=== PATIENT | female | born 1990 | race Caucasian/White ===

== ENCOUNTER 2020-10-24 19:53 | Inpatient (IN) | payer BC ==
[2020-10-24] MEDS ORDERED: Calcium Carbonate 500 MG Tab.Chew PO PRN (21:08)
[2020-10-24] MEDS ORDERED: Ondansetron 4 MG/2 ML SDV IVPUSH PRN (21:08)
[2020-10-24] MEDS ORDERED: Nalbuphine 10 MG/1 ML Vial IVPUSH PRN (21:08)
[2020-10-24] MEDS ORDERED: Sodium Chloride 0.9% 10 ML Syringe FLUSH PRN (21:08)
[2020-10-24] MEDS ORDERED: Oxytocin/Lactated Ringers 10 UNIT/1,000 ML BAG IV SCH ×2 (21:15)
[2020-10-24] MEDS: Lactated Ringers 1,000 ML IV SCH ×2 (22:58→23:57)
[2020-10-24] MEDS ORDERED: diphenhydrAMINE 50 MG/ML SDV IVPUSH PRN (23:50)
[2020-10-24] MEDS ORDERED: fentaNYL 100 MCG/2 ML SDV EPIDUR PRN (23:50)
[2020-10-24] MEDS ORDERED: ePHEDrine 50 MG/ML SDV IVPUSH PRN (23:50)
[2020-10-25] MEDS ORDERED: Bupivacaine 0.25% 10 ML SDV ONE
[2020-10-25] MEDS: Bupivacaine/fentaNYL/NS 100 ML Bag EPIDUR PRN ×2 (00:02→09:45)
--- NOTE | 2020-10-25 00:22 | PCM.PREANE ---
Preanesthetic Assessment - Procedure Proposed Procedure: delroy - Anesthesia/Transfusion/Family Hx Anesthesia History: Prior Anesthesia Without Reaction Family History of Anesthesia Reaction: No Transfusion History: No Prior Transfusion(s) Type of Transfusion Reactions: Reports: Unknown - Review of Systems General: No Symptoms Pulmonary: No Symptoms Cardiovascular: No Symptoms Gastrointestinal: Abdominal Pain (contractions) Neurological: No Symptoms Other: Reports: None - Physical Assessment Vital Signs: Last Vital Signs Temp 98.6 F 10/24/20 20:19 Pulse 120 H 10/24/20 20:19 Resp 18 10/24/20 20:19 BP 136/71 10/24/20 20:19 Pulse Ox 98 10/24/20 20:19 Height: 5 ft 5 in Weight: 85.275 kg ASA Class: 2 Mental Status: Alert & Oriented x3 Airway Class: Mallampati = 1 Dentition: Reports: Normal Dentition Thyro-Mental Finger Breadths: 3 Mouth Opening Finger Breadths: 3 ROM/Head Extension: Full Lungs: Clear to Auscultation, Normal Respiratory Effort Cardiovascular: Regular Rate, Regular Rhythm - Lab Values: Laboratory Last Values WBC 11.72 K/mm3 (3.98-10.04) H 10/24/20 21:20 RBC 3.79 M/mm3 (3.98-5.22) L 10/24/20 21:20 Hgb 10.6 gm/dl (11.2-15.7) L 10/24/20 21:20 Hct 33.0 % (34.1-44.9) L 10/24/20 21:20 MCV 87.1 fl (79.4-94.8) 10/24/20 21:20 MCH 28.0 pg (25.6-32.2) 10/24/20 21:20 MCHC 32.1 g/dl (32.2-35.5) L 10/24/20 21:20 RDW Std Deviation 40.8 fL (36.4-46.3) 10/24/20 21:20 Plt Count 225 K/mm3 (182-369) 10/24/20 21:20 MPV 10.9 fl (9.4-12.3) 10/24/20 21:20 Neut % (Auto) 76.3 % (34.0-71.1) H 10/24/20 21:20 Lymph % (Auto) 13.5 % (19.3-51.7) L 10/24/20 21:20 [place] % (Auto) 6.9 % (4.7-12.5) 10/24/20 21:20 Eos % (Auto) 2.6 (0.7-5.8) 10/24/20 21:20 Baso % (Auto) 0.1 % (0.1-1.2) 10/24/20 21:20 Neut # (Auto) 8.94 K/mm3 (1.56-6.13) H 10/24/20 21:20 Lymph # (Auto) 1.58 K/mm3 (1.18-3.74) 10/24/20 21:20 [place] # (Auto) 0.81 K/mm3 (0.24-0.36) H 10/24/20 21:20 Eos # (Auto) 0.31 K/mm3 (0.04-0.36) 10/24/20 21:20 Baso # (Auto) 0.01 K/mm3 (0.01-0.08) 10/24/20 21:20 Membrane Rupture Positive H 10/24/20 20:20 RPR Non-reactive (NONREACTIVE) 10/24/20 21:20 SARS-CoV-2 RNA (ASHLEY) Negative (NEGATIVE) 10/24/20 21:30 Blood Type O POSITIVE 10/24/20 21:20 Gel Antibody Screen Negative 10/24/20 21:20 - Allergies Allergies/Adverse Reactions: Allergies Allergy/AdvReac Type Severity Reaction Status Date / Time No Known Allergies Allergy Verified 10/24/20 22:09 - Blood Blood Available: No - Acknowledgements Anesthesia Type Planned: Epidural Pt an Appropriate Candidate for the Planned Anesthesia: Yes Alternatives and Risks of Anesthesia Discussed w Pt/Guardian: Yes Pt/Guardian Understands and Agrees with Anesthesia Plan: Yes PreAnesthesia Questionnaire - Past Health History Medical/Surgical History: Denies Medical/Surgical History Cardiovascular History: Reports: None Respiratory History: Reports: None Gastrointestinal History: Reports: None PECAN HULLER History: Reports: , Other (See Below) : 2 (38 weeks) Para: 1 Other OB/BYN History: Dysmenorrhea, menometrorragia, HPV in 2012 Musculoskeletal History: Reports: None Oncologic (Cancer) History: Reports: None - Infectious Disease History Infectious Disease History: Reports: Chicken Pox, Human Papilloma Virus (HPV) - Past Surgical History HEENT Surgical History: Reports: Myringotomy w Tube(s), Oral Surgery, Other (See Below) Other HEENT Surgeries/Procedures: wisdom teeth removed - SUBSTANCE USE Tobacco Use Status *Q: Never Tobacco User Tobacco Use Within Last Twelve Months: No Second Hand Smoke Exposure: No Recreational Drug Use History: No - HOME MEDS Home Medications: Home Meds Pnv No.95/Ferrous Fum/Folic AC [ Tablet] 1 tab PO DAILY 03/29/19 [History] - CURRENT (IN HOUSE) MEDS Current Meds: Current Medications Calcium Carbonate/Glycine (Tums) 1,000 mg PO Q2H PRN PRN Reason: Indigestion Diphenhydramine HCl (Benadryl) 25 mg IVPUSH Q6H PRN PRN Reason: pruritis Ephedrine Sulfate (Ephedrine Sulfate) 5 mg IVPUSH ASDIRECTED PRN PRN Reason: Hypotension Fentanyl (Sublimaze) 100 mcg EPIDUR Q3H PRN PRN Reason: Pain Last Admin: 10/25/20 00:01 Dose: 100 mcg Documented by: Fentanyl/Bupivacaine HCl (Fentanyl/Bupivacaine/Ns 2 Mcg-0.125% 100 Ml) 100 ml EPIDUR ASDIRECTED PRN PRN Reason: Pain Last Admin: 10/25/20 00:02 Dose: 100 ml Documented by: Lactated Ringer's (Ringers, Lactated) 1,000 mls @ 100 mls/hr IV ASDIRECTED JACINTA Last Admin: 10/24/20 23:57 Dose: 100 mls/hr Documented by: Oxytocin/Lactated Ringer's (Pitocin In Lr 10 Units/1,000 Ml) 10 unit in 1,000 mls @ 12 mls/hr IV TITRATE JACINTA; Protocol Oxytocin/Lactated Ringer's (Pitocin In Lr 10 Units/1,000 Ml) 10 unit in 1,000 mls @ 100 mls/hr IV .CONTINUOUS JACINTA Nalbuphine HCl (Nubain) 10 mg IVPUSH Q2H PRN PRN Reason: Pain Ondansetron HCl (Zofran) 4 mg IVPUSH Q4H PRN PRN Reason: Nausea/Vomiting Sodium Chloride (Saline Flush) 10 ml FLUSH ASDIRECTED PRN PRN Reason: Keep Vein Open
[2020-10-25] MEDS: Lactated Ringers 1,000 ML IV SCH ×2 (02:12→07:42)
--- NOTE | 2020-10-25 09:50 | PCM.LDHP ---
L&D History of Present Illness - General Date of Service: 10/25/20 Admit Problem/Dx: Patient Status Order with Admit Dx/Problem 10/24/20 20:31 Patient Status [ADT] Routine 10/24/20 21:09 Patient Status [ADT] Routine Admission Diagnosis/Problem Admission Diagnosis/Problem 10/25/20 09:41 Karen is a 30-year-old 2 para 1-0-0-1 white female admitted on the evening of 10/24/2020 with reported spontaneous rupture of membranes, in early labor at 38-3/7 weeks gestational age with an AMAURI of 11/04/2020. Source of Information: Patient History Limitations: Reports: No Limitations - History of Present Illness Introduction:: Karen is a 30-year-old 2 para 1-0-0-1 white female admitted on the evening of 10/24/2020 with reported spontaneous rupture of membranes, in early labor at 38-3/7 weeks gestational age with an AMAURI of 11/04/2020. Clinical evaluation and AmniSure confirmed spontaneous rupture membranes with resultant clear amniotic fluid. Patient was occasionally gustavo admission. The heart tones were reassuring. MARRIAGE AND FAMILY THERAPIST history: 2 para 1-0-0-1. AMAURI of 11/04/2020 determined by a certain last menstrual period which started on 01/29/2020 and supported by ultrasound during the course of the . Patient was seen early in the at 5-3/7 weeks gestational age and on a regular basis thereafter. She had a relatively unremarkable course of . She is a patient of Dr. Cardona'payton and received care at [facility]. Her course was without any concern. Weight gain was from 130 pounds to 184 pounds for 54 pound increase. Vital signs remained stable throughout the course. Fundal height growth was appropriate. Devious obstetric experience included A term delivery on 03/30/2019 at 38-1/7 weeks gestational agefemale infant7 pounds 2 ouncesepidural used in labor. Child's name is Jeanne Naranjo. Laboratory testing in shows blood which is all positive with a negative antibody screen. First hemoglobin was 12.8 g/dL and platelets were 228,000. Her rubella titer indicates immunity. Syphilis IgG and IgM were nonreactive. Hepatitis B surface antigen was nonreactive. Hepatitis C nonreactive. Chlamydia and gonorrhea assays were both negative. Second trimester labs showed a 1 hour GTT 121 mg/dL. Group B strep screen was negative. Allergies: None Medications: 1. vitamins 1 daily Past medical history: 1. x1 Past surgical history: 1. Ear surgery as a child consisting of ear tubes and repairing a hole in her eardrum. Family history: Mother and father are alive and generally well. Father is felt to be an adult-onset diabetic. 1 brother alive and well. Maternal grandmother is is alive but has Alzheimer's. Maternal grandfather secondary to stroke and also had prostate cancer. Paternal grandmother deceasedcause unknown. Paternal grandfather deceasedcause unknown. No anesthesia, bleeding, blood clotting, noted in the family. Social history: Patient is , is Braden. [place] in [place], [place]. She does not use any alcohol, drugs or tobacco. 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 Review of systems: In general patient has no complaints. Did report spontaneous asymptomatic rupture of membranes last evening. Occasional contractions were noted right after. Skin: Negative Lungs: No infectious symptoms or shortness of breath Cardiovascular: No chest pain or exercise intolerance Breasts: No lumps, changes in size, pain, dimpling, discharge or axillary or supraclavicular concerns. GI: Negative : changes associated with . Musculoskeletal: Negative Neurological: Negative Physical exam: In general the patient is well-developed, well-nourished, pleasant female of stated age in no acute distress. Skin is warm dry without lesions. HEENT, neck and back within normal limits. Lungs are clear with good breath sounds in all lung horn. Cardiovascular exam shows regular and rhythm without murmurs. Breast exam is deferred with patient having reported that it was done at first annual visit found to be normal Abdomen is gravid with last fundal height in clinic at 38 cm with baby in a vertex presentation.. Genital per digital exam shows cervix to be 4 cm, 90% effaced, -3, cephalic presentation, mid position, soft. Intrauterine pressure catheter placed. Extremities and neurological exam are grossly within normal limits. Pain Score: 6 - Related Data Allergies/Adverse Reactions: Allergies Allergy/AdvReac Type Severity Reaction Status Date / Time No Known Allergies Allergy Verified 10/24/20 22:09 Home Medications: Home Meds Pnv No.95/Ferrous Fum/Folic AC [ Tablet] 1 tab PO DAILY 03/29/19 [History] Past Medical History - Past Health History Medical/Surgical History: Denies Medical/Surgical History Cardiovascular History: Reports: None Respiratory History: Reports: None Gastrointestinal History: Reports: None MARRIAGE AND FAMILY THERAPIST History: Reports: , Other (See Below) Other OB/BYN History: Dysmenorrhea, menometrorragia, HPV in 2011 Musculoskeletal History: Reports: None Oncologic (Cancer) History: Reports: None - Infectious Disease History Infectious Disease History: Reports: Chicken Pox, Human Papilloma Virus (HPV) - Past Surgical History HEENT Surgical History: Reports: Myringotomy w Tube(s), Oral Surgery, Other (See Below) Other HEENT Surgeries/Procedures: wisdom teeth removed Social & Family History - Family History Family Medical History: No Pertinent Family History - Tobacco Use Tobacco Use Status *Q: Never Tobacco User Second Hand Smoke Exposure: No - Caffeine Use Caffeine Use: Reports: None - Recreational Drug Use Recreational Drug Use: No H&P Review of Systems - Review of Systems: Review Of Systems: See Below L&D Exam - Exam Exam: See Below - Vital Signs Vital Signs: Last Vital Signs Temp 37.0 C 10/24/20 20:19 Pulse 120 H 10/24/20 20:19 Resp 18 10/24/20 20:19 BP 136/71 10/24/20 20:19 Pulse Ox 98 10/24/20 20:19 Weight: 85.275 kg - Patient Data Lab Results Last 24 hrs: Laboratory Results - last 24 hr 10/24/20 10/24/20 10/24/20 Range/Units 20:20 21:20 21:20 WBC 11.72 H (3.98-10.04) K/mm3 RBC 3.79 L (3.98-5.22) M/mm3 Hgb 10.6 L (11.2-15.7) gm/dl Hct 33.0 L (34.1-44.9) % MCV 87.1 (79.4-94.8) fl MCH 28.0 (25.6-32.2) pg MCHC 32.1 L (32.2-35.5) g/dl RDW Std Deviation 40.8 (36.4-46.3) fL Plt Count 225 (182-369) K/mm3 MPV 10.9 (9.4-12.3) fl Neut % (Auto) 76.3 H (34.0-71.1) % Lymph % (Auto) 13.5 L (19.3-51.7) % [place] % (Auto) 6.9 (4.7-12.5) % Eos % (Auto) 2.6 (0.7-5.8) Baso % (Auto) 0.1 (0.1-1.2) % Neut # (Auto) 8.94 H (1.56-6.13) K/mm3 Lymph # (Auto) 1.58 (1.18-3.74) K/mm3 [place] # (Auto) 0.81 H (0.24-0.36) K/mm3 Eos # (Auto) 0.31 (0.04-0.36) K/mm3 Baso # (Auto) 0.01 (0.01-0.08) K/mm3 Membrane Rupture Positive H RPR (NONREACTIVE) SARS-CoV-2 RNA (ASHLEY) (NEGATIVE) Blood Type O POSITIVE Gel Antibody Screen Negative 10/24/20 10/24/20 Range/Units 21:20 21:30 WBC (3.98-10.04) K/mm3 RBC (3.98-5.22) M/mm3 Hgb (11.2-15.7) gm/dl Hct (34.1-44.9) % MCV (79.4-94.8) fl MCH (25.6-32.2) pg MCHC (32.2-35.5) g/dl RDW Std Deviation (36.4-46.3) fL Plt Count (182-369) K/mm3 MPV (9.4-12.3) fl Neut % (Auto) (34.0-71.1) % Lymph % (Auto) (19.3-51.7) % [place] % (Auto) (4.7-12.5) % Eos % (Auto) (0.7-5.8) Baso % (Auto) (0.1-1.2) % Neut # (Auto) (1.56-6.13) K/mm3 Lymph # (Auto) (1.18-3.74) K/mm3 [place] # (Auto) (0.24-0.36) K/mm3 Eos # (Auto) (0.04-0.36) K/mm3 Baso # (Auto) (0.01-0.08) K/mm3 Membrane Rupture RPR Non-reactive (NONREACTIVE) SARS-CoV-2 RNA (ASHLEY) Negative (NEGATIVE) Blood Type Gel Antibody Screen Result Diagrams: 10/24/20 21:20 Problem List Initiated/Reviewed/Updated: Yes Orders Last 24hrs: Active Orders 24 hr Category Date Time Status Patient Status [ADT] Routine ADT 10/24/20 21:09 Active Activity as Tolerated [RC] PFP Care 10/24/20 21:09 Active Communication Order [RC] ASDIRECTED Care 10/24/20 21:09 Active Non Stress Test [RC] PER UNIT ROUTINE Care 10/24/20 20:31 Active Notify Provider [RC] ASDIRECTED Care 10/24/20 23:50 Active Notify Provider [RC] PFP Care 10/24/20 21:09 Active Notify Provider [RC] PRN Care 10/24/20 21:09 Active Peripheral IV Care [RC] . DIRECTED Care 10/24/20 21:09 Active Pump Management, Intrathecal [RC] ASDIRECTED Care 10/24/20 21:12 Active Vital Signs [RC] PER UNIT ROUTINE Care 10/24/20 20:31 Active Bupivacaine/fentaNYL/NS [fentaNYL/Bupivacaine/NS 2 MCG- Med 10/24/20 23:50 Active 0.125% 100 ML] 100 ml EPIDUR ASDIRECTED PRN Calcium Carbonate [Tums] Med 10/24/20 21:08 Active 1,000 mg PO Q2H PRN Lactated Ringers [Ringers, Lactated] 1,000 ml Med 10/24/20 21:15 Active IV ASDIRECTED Nalbuphine [Nubain] Med 10/24/20 21:08 Active 10 mg IVPUSH Q2H PRN Ondansetron [Zofran] Med 10/24/20 21:08 Active 4 mg IVPUSH Q4H PRN Oxytocin/Lactated Ringers [Pitocin in LR 10 Units/1,000 Med 10/24/20 21:15 Active ML] 10 unit in 1,000 ml IV .CONTINUOUS Oxytocin/Lactated Ringers [Pitocin in LR 10 Units/1,000 Med 10/24/20 21:15 Active ML] 10 unit in 1,000 ml IV TITRATE Sodium Chloride 0.9% [Saline Flush] Med 10/24/20 21:08 Active 10 ml FLUSH ASDIRECTED PRN diphenhydrAMINE [Benadryl] Med 10/24/20 23:50 Active 25 mg IVPUSH Q6H PRN ePHEDrine [ePHEDrine sulfate] Med 10/24/20 23:50 Active 5 mg IVPUSH ASDIRECTED PRN fentaNYL [Sublimaze] Med 10/24/20 23:50 Active 100 mcg EPIDUR Q3H PRN Electronic Heart Tones Ext w TOCO [WOMSER] Oth 10/24/20 21:09 Ordered Routine Electronic Heart Tones Internal [WOMSER] Per Unit Oth 10/24/20 21:09 Ordered Routine Peripheral IV Insertion Adult [OM.PC] Routine Oth 10/24/20 21:09 Ordered Resuscitation Status Routine Resus Stat 10/24/20 20:31 Ordered Medication Orders Calcium Carbonate/Glycine (Tums) 1,000 mg PO Q2H PRN PRN Reason: Indigestion Diphenhydramine HCl (Benadryl) 25 mg IVPUSH Q6H PRN PRN Reason: pruritis Ephedrine Sulfate (Ephedrine Sulfate) 5 mg IVPUSH ASDIRECTED PRN PRN Reason: Hypotension Fentanyl (Sublimaze) 100 mcg EPIDUR Q3H PRN PRN Reason: Pain Last Admin: 10/25/20 00:01 Dose: 100 mcg Documented by: EVAN Fentanyl/Bupivacaine HCl (Fentanyl/Bupivacaine/Ns 2 Mcg-0.125% 100 Ml) 100 ml EPIDUR ASDIRECTED PRN PRN Reason: Pain Last Admin: 10/25/20 00:02 Dose: 100 ml Documented by: EVAN Lactated Ringer's (Ringers, Lactated) 1,000 mls @ 100 mls/hr IV ASDIRECTED JACINTA Last Admin: 10/25/20 07:42 Dose: 100 mls/hr Documented by: [id number] Infusion: 10/25/20 07:42 Dose: 100 mls/hr Documented by: [email or web address] Admin: 10/25/20 02:12 Dose: 100 mls/hr Documented by: Infusion: 10/25/20 02:12 Dose: 100 mls/hr Documented by: Admin: 10/24/20 23:57 Dose: 100 mls/hr Documented by: Infusion: 10/24/20 23:57 Dose: 100 mls/hr Documented by: Admin: 10/24/20 22:58 Dose: 100 mls/hr Documented by: EVAN Oxytocin/Lactated Ringer's (Pitocin In Lr 10 Units/1,000 Ml) 10 unit in 1,000 mls @ 12 mls/hr IV TITRATE JACINTA; Protocol Last Titration: 10/25/20 06:40 Dose: 8 munits/min, 48 mls/hr Documented by: Titration: 10/25/20 06:15 Dose: 10 munits/min, 60 mls/hr Documented by: Titration: 10/25/20 04:40 Dose: 8 munits/min, 48 mls/hr Documented by: Titration: 10/25/20 03:40 Dose: 6 munits/min, 36 mls/hr Documented by: Titration: 10/25/20 02:50 Dose: 4 munits/min, 24 mls/hr Documented by: Admin: 10/25/20 01:15 Dose: 2 munits/min, 12 mls/hr Documented by: EVAN Oxytocin/Lactated Ringer's (Pitocin In Lr 10 Units/1,000 Ml) 10 unit in 1,000 mls @ 100 mls/hr IV .CONTINUOUS JACINTA Nalbuphine HCl (Nubain) 10 mg IVPUSH Q2H PRN PRN Reason: Pain Ondansetron HCl (Zofran) 4 mg IVPUSH Q4H PRN PRN Reason: Nausea/Vomiting Sodium Chloride (Saline Flush) 10 ml FLUSH ASDIRECTED PRN PRN Reason: Keep Vein Open Assessment/Plan Comment:: Rosalinda is a 30-year-old 2 para 1-0-0-1 white female admitted on the evening of 10/24/2020 with reported spontaneous rupture of membranes, in early labor at 38-3/7 weeks gestational age with an AMAURI of 11/04/2020. 2. heart tones reassuring 3. Group B strep screen negative 4. Epidural for labor analgesia 5. Rubella immune 6. Patient desiring breast-feeding Plan: 1. Anticipate 2. Epidural for pain control 3. Routine labor care 4. Routine admission labs: Covid19 testing, RPR, CBC.
--- NOTE | 2020-10-25 12:00 | PCM.SN.2 ---
- Free Text/Narrative Note: Delivery note: Karen is a 30-year-old 2 now para 2-0-0-2 white female admitted on the evening/night of 10/24/2020 with reported spontaneous rupture of membranes that occurred at approximately 1830 hrs. on 10/24/2020. She was noted to be in early labor at 38-3/7 weeks gestational age with an AMAURI of 11/04/2020. Clinical evaluation and AmniSure confirmed spontaneous rupture membranes with resultant clear amniotic fluid. She was monitored in labor for several hours to allow intensification of labor but then was augmented with Pitocin to facilitate the labor pattern. With labor augmentation patient progressed well and became completely dilated at approximately 1030 hrs. on 10/25/2020. An IUPC had been placed to evaluate the contraction pattern more closely. She pushed for short period of time thereafter and at 1131 hrs. on 10/25/2020 delivered a viable, walls, 2590 g (7 pounds 14.6 ounce), 21.5 inch long male infant with Apgars of 7 and 9 in a direct occiput anterior position. The baby was placed on mom's abdomen. Nose and mouth were bulb suctioned and the baby was dried and warmed. The umbilical cord is allowed to pulsate for 2 to 3 minutes. Upon delivery the Pitocin solution per protocol rate was increased to 500 cc an hour to facilitate the tone of the uterus and decrease likelihood of bleeding. Cord blood is obtained. The umbilical cord had 3 vessels present within it. The placenta then delivered spontaneously at 1136 hrs. in a Franks presentation, appeared intact and complete and was discarded per patient desire. The patient was noted to have a first-degree laceration which was repaired with 2 simple sutures of 3-0 Monocryl. Epidural analgesia was used for perineal laceration repair anesthesia. Patient tolerated this well. Estimated blood loss was 200 cc. Patient plans to breast-feed. Condition: Good.
[2020-10-25] MEDS ORDERED: Benzocaine/Menthol 20%-0.5% Spray 56 GM Canister TOP PRN (12:05)
[2020-10-25] MEDS ORDERED: Witch Hazel Medicated Pads 40/Jar TOP PRN (12:05)
[2020-10-25] MEDS ORDERED: Acetaminophen 325 MG Tab PO PRN (12:05)
[2020-10-25] MEDS: Ibuprofen 600 MG Tab PO PRN ×2 (13:44→20:10)
[2020-10-25] MEDS: Docusate Sodium 100 MG Cap PO SCH (20:11)
--- NOTE | 2020-10-26 08:43 | PCM.SN.2 ---
- Free Text/Narrative Note: Discharge summary: Karen is a 30-year-old 2 now para 2-0-0-2 white female admitted on the evening/night of 10/24/2020 with reported spontaneous rupture of membranes that occurred at approximately 1830 hrs. on 10/24/2020. She was noted to be in early labor at 38-3/7 weeks gestational age with an AMAURI of 11/04/2020. Clinical evaluation and AmniSure confirmed spontaneous rupture membranes with resultant clear amniotic fluid. She was monitored in labor for several hours to allow intensification of labor but then was augmented with Pitocin to facilitate the labor pattern. With labor augmentation patient progressed well and became completely dilated at approximately 1030 hrs. on 10/25/2020. An IUPC had been placed to evaluate the contraction pattern more closely. She pushed for short period of time thereafter and at 1131 hrs. on 10/25/2020 delivered a viable, walls, 2590 g (7 pounds 14.6 ounce), 21.5 inch long male with Apgars of 7 and 9 in a direct occiput anterior position. The baby was placed on mom's abdomen. Nose and mouth were bulb suctioned and the baby was dried and warmed. The umbilical cord is allowed to pulsate for 2 to 3 minutes. Upon delivery the Pitocin solution per protocol rate was increased to 500 cc an hour to facilitate the tone of the uterus and decrease likelihood of bleeding. Cord blood is obtained. The umbilical cord had 3 vessels present within it. The placenta then delivered spontaneously at 1136 hrs. in a Franks presentation, appeared intact and complete and was discarded per patient desire. The patient was noted to have a first-degree laceration which was repaired with 2 simple sutures of 3-0 Monocryl. Epidural analgesia was used for perineal laceration repair anesthesia. Patient tolerated this well. Estimated blood loss was 200 cc. Patient plans to breast-feed. Patient is doing well. Epidural has worn off completely. She is voiding well, has minimal lochia, is breast-feeding without concerns. She is doing very well and would like to be discharged home. Condition: Good.
[2020-10-26] MEDS ORDERED: Prenatal Multivitamin with Calcium/Folic Acid/Iron Tab PO SCH (09:00)
--- NOTE | 2020-10-26 12:08 | PCM48HPAN ---
Post Anesthesia Note - EVALUATION WITHIN 48HRS OF ANESTHETIC Vital Signs in Normal Range: Yes Patient Participated in Evaluation: Yes Respiratory Function Stable: Yes Airway Patent: Yes Cardiovascular Function Stable: Yes Hydration Status Stable: Yes Pain Control Satisfactory: Yes Nausea and Vomiting Control Satisfactory: Yes Mental Status Recovered: Yes Vital Signs: Last Vital Signs Temp 98.1 F 10/26/20 04:08 Pulse 103 H 10/26/20 04:08 Resp 14 10/26/20 04:08 BP 125/68 10/26/20 04:08 Pulse Ox 97 10/26/20 04:08
[2020-10-26] MEDS: Docusate Sodium 100 MG Cap PO SCH (12:47)
--- NOTE | 2020-10-30 19:50 | PCM.DCSUM1 ---
Discharge Summary - Hospital Course Free Text/Narrative:: Karen is a 30-year-old 2 now para 2-0-0-2 white female admitted on the evening/night of 10/24/2020 with reported spontaneous rupture of membranes that occurred at approximately 1830 hrs. on 10/24/2020. She was noted to be in early labor at 38-3/7 weeks gestational age with an AMAURI of 11/04/2020. Clinical evaluation and AmniSure confirmed spontaneous rupture membranes with resultant clear amniotic fluid. She was monitored in labor for several hours to allow intensification of labor but then was augmented with Pitocin to facilitate the labor pattern. With labor augmentation patient progressed well and became completely dilated at approximately 1030 hrs. on 10/25/2020. An IUPC had been placed to evaluate the contraction pattern more closely. She pushed for short period of time thereafter and at 1131 hrs. on 10/25/2020 delivered a viable, walls, 2590 g (7 pounds 14.6 ounce), 21.5 inch long male infant with Apgars of 7 and 9 in a direct occiput anterior position. The baby was placed on mom's abdomen. Nose and mouth were bulb suctioned and the baby was dried and warmed. The umbilical cord is allowed to pulsate for 2 to 3 minutes. Upon delivery the Pitocin solution per protocol rate was increased to 500 cc an hour to facilitate the tone of the uterus and decrease likelihood of bleeding. Cord blood is obtained. The umbilical cord had 3 vessels present within it. The placenta then delivered spontaneously at 1136 hrs. in a Franks presentation, appeared intact and complete and was discarded per patient desire. The patient was noted to have a first-degree laceration which was repaired with 2 simple sutures of 3-0 Monocryl. Epidural analgesia was used for perineal laceration repair anesthesia. Patient tolerated this well. Estimated blood loss was 200 cc. Patient plans to breast-feed. patient is done well. She is ambulating well, breast-feeding without problems. She has minimal lochia and is voiding without concerns. She is desiring discharge home. Condition: Good. Diagnosis: Stroke: No - Discharge Data Discharge Date: 10/25/20 Discharge Disposition: Home, Self-Care 01 Condition: Good - Referral to Home Health Primary Care Physician: Nnamdi Allen MD - Patient Instructions Diet: Regular Diet as Tolerated (Diet with increased calories and calcium as recommended) Activity: As Tolerated Driving: May Drive Today Showering/Bathing: May Shower Notify Provider of: Fever, Increased Pain, Swelling and Redness, Drainage, Nausea and/or Vomiting - Discharge Plan Home Medications: Home Meds Pnv No.95/Ferrous Fum/Folic AC [ Tablet] 1 tab PO DAILY 03/29/19 [History] Patient Handouts: Care After Vaginal Delivery Referrals: Mallory Phan MD [Physician] - (Follow up with Dr Phan in clinic in 2-6 weeks. Please call to make appointment. ) - Discharge Summary/Plan Comment DC Time >30 min.: No Discharge Summary/Plan Comment: Discharge instructions: 1. Discharge home 2. Diet, activity and follow-up discussed with patient. Recommend nursing diet with increased calories and calcium. 3. Precautions given concern increased pain, bleeding, temperature, signs/symptoms of DVT/PE. 4. Medications per home medication was printed, discussed with and given to the patient. 5. Return to clinic-Dr. Phan at [facility] to call for an appointment. Diagnosis: Term -delivered Condition: Good - Patient Data Vitals - Most Recent: Last Vital Signs Temp 36.9 C 10/26/20 08:07 Pulse 106 H 10/26/20 08:07 Resp 19 10/26/20 08:07 BP 132/69 10/26/20 08:07 Pulse Ox 97 10/26/20 08:07 Weight - Most Recent: 85.275 kg Med Orders - Current: Current Medications Discontinued Medications Acetaminophen (Tylenol) 650 mg PO Q4H PRN PRN Reason: mild pain or fever Benzocaine/Menthol (Dermoplast Pain Relief [place]) 0 gm TOP ASDIRECTED PRN PRN Reason: Perineal Comfort Measure Last Admin: 10/25/20 13:16 Dose: 1 applic Documented by: Bupivacaine HCl (Sensorcaine-Mpf 0.25%) 10 ml .ROUTE .STK-MED ONE Stop: 10/25/20 00:01 Calcium Carbonate/Glycine (Tums) 1,000 mg PO Q2H PRN PRN Reason: Indigestion Diphenhydramine HCl (Benadryl) 25 mg IVPUSH Q6H PRN PRN Reason: pruritis Docusate Sodium (Colace) 100 mg PO BID [facility] Last Admin: 10/26/20 12:47 Dose: Not Given Documented by: Ephedrine Sulfate (Ephedrine Sulfate) 5 mg IVPUSH ASDIRECTED PRN PRN Reason: Hypotension Fentanyl (Sublimaze) 100 mcg EPIDUR Q3H PRN PRN Reason: Pain Last Admin: 10/25/20 00:01 Dose: 100 mcg Documented by: Fentanyl/Bupivacaine HCl (Fentanyl/Bupivacaine/Ns 2 Mcg-0.125% 100 Ml) 100 ml EPIDUR ASDIRECTED PRN PRN Reason: Pain Last Admin: 10/25/20 09:45 Dose: 100 ml Documented by: Lactated Ringer's (Ringers, Lactated) 1,000 mls @ 100 mls/hr IV ASDIRECTED JACINTA Last Admin: 10/25/20 07:42 Dose: 100 mls/hr Documented by: Oxytocin/Lactated Ringer's (Pitocin In Lr 10 Units/1,000 Ml) 10 unit in 1,000 mls @ 12 mls/hr IV TITRATE JACINTA; Protocol Last Titration: 10/25/20 11:31 Dose: 500 munits/min, 3,000 mls/hr Documented by: Oxytocin/Lactated Ringer's (Pitocin In Lr 10 Units/1,000 Ml) 10 unit in 1,000 mls @ 100 mls/hr IV .CONTINUOUS JACINTA Ibuprofen (Motrin) 600 mg PO Q4H PRN PRN Reason: Mild pain or fever Last Admin: 10/25/20 20:10 Dose: 600 mg Documented by: Nalbuphine HCl (Nubain) 10 mg IVPUSH Q2H PRN PRN Reason: Pain Ondansetron HCl (Zofran) 4 mg IVPUSH Q4H PRN PRN Reason: Nausea/Vomiting Prenat Multivit/Public Health Aide/Iron/Folic Ac ( Plus Iron) 1 each PO DAILY [facility] Last Admin: 10/26/20 12:47 Dose: Not Given Documented by: Sodium Chloride (Saline Flush) 10 ml FLUSH ASDIRECTED PRN PRN Reason: Keep Vein Open Reanna Fitch (Tucks) 1 pad TOP ASDIRECTED PRN PRN Reason: Perineal Comfort Measure Last Admin: 10/25/20 13:17 Dose: 1 pad Documented by:
== END 2020-10-26 12:20 | disposition home or self-care (01) | DRG 560 ==
LOC: JD.OBCHECK 19:53 → JD.OB 20:01 → JD.OBCHECK 21:40 → JD.OB 21:41 → OBSVTOIN 10-25 11:31 → JD.OB 10-25 11:32
PROVIDERS: ADMIT Obstetrics & Gynecology; ATTEND Obstetrics & Gynecology
PROC: 10E0XZZ Delivery of Products of Conception, External Approach (ICD-10-PCS; principal; 2020-10-25)
PROC: 10H07YZ Insertion of Other Device into Products of Conception, Via Natural or Artificial Opening (ICD-10-PCS; 2020-10-25)
PROC: 0HQ9XZZ Repair Perineum Skin, External Approach (ICD-10-PCS; 2020-10-25)
PROC: 3E0R3BZ Introduction of Anesthetic Agent into Spinal Canal, Percutaneous Approach (ICD-10-PCS; 2020-10-25)
DX: O77.0 Labor and delivery complicated by meconium in amniotic fluid (principal); Z3A.39 39 weeks gestation of pregnancy; Z37.0 Single live birth; Z20.822 Contact with and (suspected) exposure to COVID-19
CPT/HCPCS: 01967; 36415; 51702; 59025; 59409; 84112; 85025; 86592; 86850; 86900; 86901; A9270-GY; J2590; J3010; J3490; J7120; U0002

== ENCOUNTER 2021-07-01 11:00 | Emergency (ER) | payer BC ==
--- NOTE | 2021-07-01 12:05 | CR ---
Chest: Frontal view of the chest was obtained. Comparison: No prior chest imaging is available. Heart size and mediastinum are within normal limits. Lungs are clear with no acute parenchymal change. Bony structures show nothing acute. Impression: 1. Nothing acute is seen on frontal chest x-ray. Diagnostic code #1
--- NOTE | 2021-07-01 12:39 | EDM.PDOC ---
ED HPI GENERAL MEDICAL PROBLEM - General Chief Complaint: General Stated Complaint: CHEST PAIN POSS COVID Time Seen by Provider: 07/01/21 11:15 Source of Information: Reports: Patient History Limitations: Reports: No Limitations - History of Present Illness INITIAL COMMENTS - FREE TEXT/NARRATIVE: 30-year-old female presents the emergency department today with complaints of midsternal chest discomfort that started this morning. Patient states she was exposed to a coworker who of Covid over the weekend. She states that she developed upper respiratory type symptoms 3 days ago i.e. sinus congestion. She denies any recent fever, chills, nausea, vomiting. She states that she did develop diarrhea this morning. She denies any body aches or sore throat. She states [facility] [place] this morning to get tested for Covid and this was negative. She states that her chest discomfort is worse when laying down. States she did take ibuprofen this morning for the discomfort however it has not helped. Treatments PAY PER CLICK STRATEGIST: Reports: Acetaminophen Mid-Sternal Chest Pain Score (Numeric/FACES): 1 - Related Data Allergies Allergy/AdvReac Type Severity Reaction Status Date / Time No Known Allergies Allergy Verified 07/01/21 11:25 Home Meds: Home Meds Pnv No.95/Ferrous Fum/Folic AC [ Tablet] 1 tab PO DAILY 03/29/19 [History] Mesalamine 1.2 gram PO DAILY 07/01/21 [History] norgestimate-ethinyl estradioL [Tri-Previfem Tablet] 1 tab PO DAILY 07/01/21 [History] Past Medical History - Past Health History Medical/Surgical History: Denies Medical/Surgical History Cardiovascular History: Reports: None Respiratory History: Reports: None Gastrointestinal History: Reports: None, Other (See Below) Other Gastrointestinal History: Colitis 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: , Other (See Below) Other SIX PACK LOADER OPERATOR History: Dysmenorrhea, menometrorragia, HPV in 2011 Musculoskeletal History: Reports: None Oncologic (Cancer) History: Reports: None - Infectious Disease History Infectious Disease History: Reports: Chicken Pox, Human Papilloma Virus (HPV) - Past Surgical History HEENT Surgical History: Reports: Myringotomy w Tube(s), Oral Surgery, Other (See Below) Other HEENT Surgeries/Procedures: wisdom teeth removed Social & Family History - Family History Family Medical History: No Pertinent Family History - Tobacco Use Tobacco Use Status *Q: Never Tobacco User Second Hand Smoke Exposure: No - Caffeine Use Caffeine Use: Reports: Coffee - Alcohol Use Days Per Week of Alcohol Use: 1 Number of Drinks Per Day: 4 Total Drinks Per Week: 4 - Recreational Drug Use Recreational Drug Use: No ED ROS GENERAL - Review of Systems Review Of Systems: Comprehensive ROS is negative, except as noted in HPI. ED EXAM, GENERAL - Physical Exam Exam: See Below Exam Limited By: No Limitations General Appearance: Alert, WD/WN, No Apparent Distress Ears: Normal External Exam, Hearing Grossly Normal Nose: Normal Inspection Throat/Mouth: Normal Inspection, Normal Lips, Normal Voice, No Airway Compromise Head: Atraumatic Neck: Normal Inspection, Supple Respiratory/Chest: No Respiratory Distress, Lungs Clear, Normal Breath Sounds, No Accessory Muscle Use, Chest Non-Tender Cardiovascular: Normal Peripheral Pulses, Regular Rate, Rhythm, No Edema, No Murmur Peripheral Pulses: 2+: Radial (L), Radial (R) GI/Abdominal: Normal Bowel Sounds, Soft, Non-Tender, No Distention (Female) Exam: Deferred Rectal (Female) Exam: Deferred Back Exam: Normal Inspection Extremities: Normal Inspection, Normal Range of Motion, Non-Tender, No Pedal Edema, Normal Capillary Refill Neurological: Alert, Oriented, Normal Cognition Psychiatric: Normal Affect, Normal Mood Skin Exam: Warm, Dry, Intact, Normal Color, No Rash Lymphatic: No Adenopathy Course - Vital Signs Text/Narrative:: As stated above, patient presents with chest discomfort and upper respiratory symptoms. Was recently exposed to Covid over the weekend. Patient is hemodynamically stable with O2 saturations at 99% at the time of my exam. Physical exam is essentially unremarkable. Patient's lung sounds are clear. Pain is not reproducible with palpation or deep breathing. Will obtain an EKG as well as a portable chest x-ray, lab studies to include CBC, CMP, magnesium, C-reactive protein, D-dimer and a troponin level. Last Recorded V/S: Last Vital Signs Temp 98.2 F 07/01/21 11:19 Pulse 94 07/01/21 11:19 Resp 16 07/01/21 11:19 BP 124/78 07/01/21 11:19 Pulse Ox 99 07/01/21 11:19 - Orders/Labs/Meds Labs: Laboratory Tests 07/01/21 07/01/21 07/01/21 Range/Units 11:56 11:56 11:56 WBC 9.78 (3.98-10.04) K/mm3 RBC 4.40 (3.98-5.22) M/mm3 Hgb 12.5 D (11.2-15.7) gm/dl Hct 38.5 (34.1-44.9) % MCV 87.5 (79.4-94.8) fl MCH 28.4 (25.6-32.2) pg MCHC 32.5 (32.2-35.5) g/dl RDW Std Deviation 43.1 (36.4-46.3) fL Plt Count 256 (182-369) K/mm3 MPV 10.5 (9.4-12.3) fl Neut % (Auto) 74.8 H (34.0-71.1) % Lymph % (Auto) 14.1 L (19.3-51.7) % Hughes % (Auto) 5.3 (4.7-12.5) % Eos % (Auto) 5.4 (0.7-5.8) Baso % (Auto) 0.2 (0.1-1.2) % Neut # (Auto) 7.31 H (1.56-6.13) K/mm3 Lymph # (Auto) 1.38 (1.18-3.74) K/mm3 Hughes # (Auto) 0.52 H (0.24-0.36) K/mm3 Eos # (Auto) 0.53 H (0.04-0.36) K/mm3 Baso # (Auto) 0.02 (0.01-0.08) K/mm3 D-Dimer, Quantitative 0.42 (0.19-0.50) mg/L Sodium 138 (136-145) mEq/L Potassium 3.6 (3.5-5.1) mEq/L Chloride 103 (98-107) mEq/L Carbon Dioxide 28 (21-32) mEq/L Anion Gap 10.6 (5-15) BUN 7 (7-18) mg/dL Creatinine 0.7 (0.55-1.02) mg/dL Est Cr Clr Drug Dosing 103.82 mL/min Estimated GFR (MDRD) > 60 (>60) mL/min BUN/Creatinine Ratio 10.0 L (14-18) Glucose 89 (70-99) mg/dL Calcium 8.6 (8.5-10.1) mg/dL Magnesium 1.8 (1.8-2.4) mg/dL Total Bilirubin 0.5 (0.2-1.0) mg/dL AST 13 L (15-37) U/L ALT 17 (14-59) U/L Alkaline Phosphatase 66 (46-116) U/L Troponin I < 0.017 (0.00-0.056) ng/mL C-Reactive Protein < 0.2 (<1.0) mg/dL Total Protein 7.1 (6.4-8.2) g/dl Albumin 3.4 (3.4-5.0) g/dl Globulin 3.7 gm/dL Albumin/Globulin Ratio 0.9 L (1-2) Influenza Type A RNA (NEGATIVE) Influenza Type B RNA (NEGATIVE) SARS-CoV-2 RNA (ASHLEY) (NEGATIVE) 07/01/21 Range/Units 12:02 WBC (3.98-10.04) K/mm3 RBC (3.98-5.22) M/mm3 Hgb (11.2-15.7) gm/dl Hct (34.1-44.9) % MCV (79.4-94.8) fl MCH (25.6-32.2) pg MCHC (32.2-35.5) g/dl RDW Std Deviation (36.4-46.3) fL Plt Count (182-369) K/mm3 MPV (9.4-12.3) fl Neut % (Auto) (34.0-71.1) % Lymph % (Auto) (19.3-51.7) % Hughes % (Auto) (4.7-12.5) % Eos % (Auto) (0.7-5.8) Baso % (Auto) (0.1-1.2) % Neut # (Auto) (1.56-6.13) K/mm3 Lymph # (Auto) (1.18-3.74) K/mm3 Hughes # (Auto) (0.24-0.36) K/mm3 Eos # (Auto) (0.04-0.36) K/mm3 Baso # (Auto) (0.01-0.08) K/mm3 D-Dimer, Quantitative (0.19-0.50) mg/L Sodium (136-145) mEq/L Potassium (3.5-5.1) mEq/L Chloride (98-107) mEq/L Carbon Dioxide (21-32) mEq/L Anion Gap (5-15) BUN (7-18) mg/dL Creatinine (0.55-1.02) mg/dL Est Cr Clr Drug Dosing mL/min Estimated GFR (MDRD) (>60) mL/min BUN/Creatinine Ratio (14-18) Glucose (70-99) mg/dL Calcium (8.5-10.1) mg/dL Magnesium (1.8-2.4) mg/dL Total Bilirubin (0.2-1.0) mg/dL AST (15-37) U/L ALT (14-59) U/L Alkaline Phosphatase (46-116) U/L Troponin I (0.00-0.056) ng/mL C-Reactive Protein (<1.0) mg/dL Total Protein (6.4-8.2) g/dl Albumin (3.4-5.0) g/dl Globulin gm/dL Albumin/Globulin Ratio (1-2) Influenza Type A RNA Negative (NEGATIVE) Influenza Type B RNA Negative (NEGATIVE) SARS-CoV-2 RNA (ASHLEY) Negative (NEGATIVE) - Re-Assessments/Exams Free Text/Narrative Re-Assessment/Exam: 07/01/21 13:07 Radiologist impression frontal view of the chest: 1. Nothing acute seen on frontal chest x-ray. 07/01/21 13:09 Hematology is essentially unremarkable Coagulation reveals a D-dimer of 0.42 Chemistry is essentially unremarkable, troponin less than 0.017, C-reactive protein less than 0.2 Serology is also negative for influenza a and B as well as Covid Departure - Departure Time of Disposition: 13:12 Disposition: Home, Self-Care 01 Condition: Good Clinical Impression: Viral upper respiratory illness - Discharge Information Instructions: Upper Respiratory Infection, Adult, [id number] Referrals: Carroll Myers MD [Primary Care Provider] - Forms: ED Department Discharge Additional Instructions: You were seen in the emergency department today with complaints of sinus congestion and upper respiratory symptoms. Also recently exposed to Covid. Concerns were raised by [facility] that you could have a blood clot in your lungs. Full work-up was completed while in the emergency department to include a chest x-ray, EKG as well as lab studies. These were all completely within normal limits. There is no sign of infection, blood clots, pneumonia or concerns regarding your heart. Your Covid test as well as your influenza tests were negative. You likely have a viral upper respiratory infection. This should resolve in about 10 days time. Recommend getting plenty rest, drink plenty of fluids and may take ibuprofen 600 mg every 6-8 hours as needed for discomfort or fever or Tylenol 650 mg every 4 hours. Should your condition worsen or change, do not hesitate returning to the emergency department. Sepsis Event Note (ED) - Evaluation Sepsis Screening Result: No Definite Risk - Focused Exam Vital Signs: Vital Signs Temp Pulse Resp BP Pulse Ox 07/01/21 11:19 98.2 F 94 16 124/78 99
[2021-07-01 13:03] LABS: CORONAVIRUS COVID-19 NAA NEGATIVE (NEGATIVE)
--- NOTE | 2021-07-01 15:24 | PCM.EKG ---
#1 Interpretation EKG Date: 07/01/21 Time: 11:51 Rhythm: NSR Rate (Beats/Min): 79 [place]: Normal P-Wave: Present QRS: Normal ST-T: Normal QT: Normal Comparison: NA - No Prior EKG EKG Interpretation Comments: Per Dr Stroud interpretation: Sinus rhythm at 79 bpm
== END 2021-07-01 13:29 | disposition home or self-care (01) ==
LOC: JD.ED 11:00
DX: J06.9 Acute upper respiratory infection, unspecified (principal); R07.2 Precordial pain; Z20.822 Contact with and (suspected) exposure to COVID-19
CPT/HCPCS: 0240U; 36415; 71045; 80053; 83735; 84484; 85025; 85379; 86140; 93005; 99285